=== PATIENT | female | born 1955 | race Caucasian/White ===

== ENCOUNTER → 2016-10-05 | Outpatient (CLI) | payer OTHER ==
[~2016-10-05] MED LIST: EVOXAC30 MG PO; IBUPROFEN600 MG PO; PLAQUENIL200 MG PO; PREDNISONE EYE DROPS; TOBREX 0.3% OP3.5 GM OD; URSODIOL250 MG PO
[2016-10-05 09:34] LABS: BASOPHIL% 0.3 % (0-2.5); EOSINOPHIL# 0.2 X10e3 (0-0.7); EOSINOPHIL% 3.1 % (0.0-7.0); HEMATOCRIT 43.5 % (35.0-45.0); HEMOGLOBIN 14.4 gm/dL (12.0-16.0); LYMPHOCYTE% 39.9 % (17.0-45.0); MEAN CORPUSCULAR HEMOGLOBIN 29.2 PG (28-34); MEAN CORPUSCULAR HGB CONC 33.2 g/dL (30-36); MEAN PLATELET VOLUME 8.7 FL (6.5-11.5); MONOCYTE# 0.5 X10e3 (0-1.0); MONOCYTE% 6.5 % (3.0-12.0); NEUTROPHIL# 3.7 X10e3 (1.5-7.1); NEUTROPHIL% 50.2 % (40-75); PLATELET COUNT 262 X10e3 (140-420); RED BLOOD COUNT 4.94 X10e (3.90-5.30); RED CELL DISTRIBUTION WIDTH 13.5 % (11.0-15.5); WHITE BLOOD COUNT 7.4 X10e3 (4.0-10.5)
[2016-10-05 09:45] LABS: ALBUMIN SERUM 3.8 g/dL (3.5-5.0); ALKALINE PHOSPHATASE 206 U/L (32-92); ALT (SGPT) 39 U/L (10-40); AST (SGOT) 30 U/L (10-42); BILIRUBIN,TOTAL 1.1 mg/dL (0.2-2.0); BLOOD UREA NITROGEN 22 mg/dL (9-23); BUN/CREATININE RATIO 24.44; CALCIUM SERUM 8.5 mg/dL (8.4-10.2); CARBON DIOXIDE 26 mmol/L (22-31); CHLORIDE 102 mmol/L (100-111); CHOLESTEROL 180 mg/dL (0-200); CREATININE SERUM 0.9 mg/dL (0.6-1.4); GLOM FILT RATE Estimated ABOVE60 mL/min (>60); GLUCOSE FASTING 110 mg/dL (70-110); POTASSIUM 3.6 mmol/L (3.5-5.1); PROTEIN TOTAL SERUM 7.4 g/dL (6.0-8.3); SODIUM 135 mmol/L (135-145); TRIGLYCERIDES 136 mg/dL (10-160)
[2016-10-05 10:10] LABS: DIFF IND NO
== END | disposition home or self-care (01) ==
LOC: STPL 08:49
PROVIDERS: Surgery
DX: Z48.23 Encounter for aftercare following liver transplant (principal); T45.1X1A Poisoning by antineoplastic and immunosuppressive drugs, accidental (unintentional), initial encounter; Z94.4 Liver transplant status; Z79.899 Other long term (current) drug therapy
CPT/HCPCS: 36415; 80053; 80197; 82465; 83036; 84478; 85025

== ENCOUNTER → 2016-10-12 | Outpatient (CLI) | payer OTHER ==
--- NOTE | ~2016-10-12 | CR63 ---
[facility] RADIOLOGY TEXT RESULTS PATIENT: GERARDO BANKS LOCATION: [facility] : 53 UNIT #: [id number] AGE: [address]: Frank Lopez MD SEX: F ORDER DR: [id number] [place] [id number] O MR#: [id number] Acc #: [id number] NAME: GERARDO BANKS : 1955 SEX: F STUDY DATE/TIME: 10/12/2016 10:10 UNIT: [facility] ROOM: STUDY DESCRIPTION: CR Chest 2 View Attending Physician: Frank Lopez M.D. Referring Physician: Frank Lopez M.D. Ordering Physician: Frank Lopez M.D. Primary Care Physician: No Primary Care Physician MEDICAL IMAGING REPORT This report is preliminary unless electronic signature is present. EXAM Chest x-ray 10/12/2016 INDICATION Shortness of air with cough, chills and fever for 2 weeks. History of liver transplant. FINDINGS 2 views of the chest compared with 03/21/2015. Lung volumes are low. Postoperative changes are noted in the right lung and there are scattered areas of scarring in both lungs as well. There is slight increased opacity in the right perihilar lung which could reflect an acute infiltrate. No pneumothorax. Heart size stable. There is a prominent thoracic kyphosis. IMPRESSION Persistently low lung volumes with scattered areas of scarring bilaterally and postop change in the right base. There is increased right perihilar opacity which could reflect pneumonia or atelectasis. Dictated by... Tiburcio Walker Jr., M.D. THIS IS AN ELECTRONICALLY VERIFIED REPORT Tiburcio Walker Jr., M.D. at 10/12/2016 6:58 PM CHINYERE/tyrell TD: 10/12/2016 16:02 JOB #: [id number] [facility] A [facility] RADIOLOGY TEXT RESULTS PATIENT: GERARDO BANKS LOCATION: [facility] #: [id number] : 53 UNIT #: [id number] AGE: [address]: Frank Lopez MD SEX: F ORDER DR: MEDICAL IMAGING REPORT Page 1 of 1
[2016-10-12 10:39] LABS: BASOPHIL% 0.6 % (0-2.5); EOSINOPHIL# 0.2 X10e3 (0-0.7); EOSINOPHIL% 2.5 % (0.0-7.0); HEMOGLOBIN 14.1 gm/dL (12.0-16.0); LYMPHOCYTE# 2.6 X10e3 (1.0-3.5); LYMPHOCYTE% 36.8 % (17.0-45.0); MEAN CORPUSCULAR HEMOGLOBIN 29.2 PG (28-34); MEAN CORPUSCULAR HGB CONC 32.8 g/dL (30-36); MEAN PLATELET VOLUME 8.8 FL (6.5-11.5); MONOCYTE# 0.5 X10e3 (0-1.0); MONOCYTE% 7.3 % (3.0-12.0); NEUTROPHIL# 3.7 X10e3 (1.5-7.1); NEUTROPHIL% 52.8 % (40-75); PLATELET COUNT 243 X10e3 (140-420); RED BLOOD COUNT 4.83 X10e (3.90-5.30); RED CELL DISTRIBUTION WIDTH 13.5 % (11.0-15.5)
[2016-10-12 10:44] LABS: DIFF IND NO
[2016-10-12 10:56] LABS: ALBUMIN SERUM 3.8 g/dL (3.5-5.0); ALKALINE PHOSPHATASE 217 U/L (32-92); ALT (SGPT) 45 U/L (10-40); AST (SGOT) 36 U/L (10-42); BLOOD UREA NITROGEN 19 mg/dL (9-23); BUN/CREATININE RATIO 27.14; CALCIUM SERUM 8.8 mg/dL (8.4-10.2); CARBON DIOXIDE 28 mmol/L (22-31); CHLORIDE 104 mmol/L (100-111); CREATININE SERUM 0.7 mg/dL (0.6-1.4); GLOM FILT RATE Estimated ABOVE60 mL/min (>60); GLUCOSE FASTING 102 mg/dL (70-110); POTASSIUM 3.7 mmol/L (3.5-5.1); PROTEIN TOTAL SERUM 7.2 g/dL (6.0-8.3); SODIUM 138 mmol/L (135-145)
[2016-10-12 11:34] LABS: MICRO INDICATED? YES; URINE APPEARANCE HAZY; URINE BILIRUBIN NEG (NEG); URINE BLOOD TRACE-INTACT (NEG); URINE COLOR DK YELLOW; URINE GLUCOSE NEG (NORM); URINE KETONE TRACE (NEG); URINE LEUKOCYTE ESTERASE 1+ (NEG); URINE NITRATE NEG (NEG); URINE PROTEIN TRACE (NEG); URINE SPECIFIC GRAVITY >=1.030 (1.003-1.035); URINE UROBILINOGEN 0.2 MG/DL (NORM)
[2016-10-12 11:47] LABS: URINE BACTERIA 2+ (NEG); URINE SQUAMOUS EPITHELIAL CELL MODERATE /[HPF]; URINE WBC 50-100 /[HPF] (0-5)
[2016-10-12 11:48] LABS: URINE GRANULAR CAST 0-2 /[HPF]; URINE HYALINE CAST 0-2 /[HPF]
[2016-10-15 08:25] LABS: EPSTEIN BARR VIR QT(UOFL) REF
== END | disposition home or self-care (01) ==
LOC: SRAD 09:15
PROVIDERS: Surgery
DX: Z48.23 Encounter for aftercare following liver transplant (principal); T45.1X1A Poisoning by antineoplastic and immunosuppressive drugs, accidental (unintentional), initial encounter; B25.9 Cytomegaloviral disease, unspecified; Z94.4 Liver transplant status; Z79.891 Long term (current) use of opiate analgesic; J98.4 Other disorders of lung; Z98.890 Other specified postprocedural states
CPT/HCPCS: 36415; 71020; 80053; 80197; 81003; 85025; 87040; 87086; 87497; 87799

== ENCOUNTER → 2016-11-18 | Outpatient (CLI) | payer OTHER ==
[2016-11-18 10:03] LABS: BASOPHIL% 0.5 % (0-2.5); EOSINOPHIL# 0.2 X10e3 (0-0.7); EOSINOPHIL% 2.8 % (0.0-7.0); HEMATOCRIT 40.2 % (35.0-45.0); HEMOGLOBIN 13.2 gm/dL (12.0-16.0); LYMPHOCYTE# 2.6 X10e3 (1.0-3.5); LYMPHOCYTE% 35.5 % (17.0-45.0); MEAN CELL VOLUME 87.6 FL (83-96); MEAN CORPUSCULAR HEMOGLOBIN 28.8 PG (28-34); MEAN CORPUSCULAR HGB CONC 32.9 g/dL (30-36); MEAN PLATELET VOLUME 8.4 FL (6.5-11.5); MONOCYTE# 0.5 X10e3 (0-1.0); MONOCYTE% 6.4 % (3.0-12.0); NEUTROPHIL% 54.8 % (40-75); PLATELET COUNT 250 X10e3 (140-420); RED BLOOD COUNT 4.59 X10e (3.90-5.30); WHITE BLOOD COUNT 7.3 X10e3 (4.0-10.5)
[2016-11-18 10:05] LABS: DIFF IND NO
[2016-11-18 10:14] LABS: ALBUMIN SERUM 3.8 g/dL (3.5-5.0); BILIRUBIN,TOTAL 0.6 mg/dL (0.2-2.0); BUN/CREATININE RATIO 33.33; CALCIUM SERUM 8.6 mg/dL (8.4-10.2); CREATININE SERUM 0.9 mg/dL (0.6-1.4); GLOM FILT RATE Estimated 68.6 mL/min (>60); POTASSIUM 3.6 mmol/L (3.5-5.1); PROTEIN TOTAL SERUM 7.2 g/dL (6.0-8.3)
== END | disposition home or self-care (01) ==
LOC: STPL 09:32
PROVIDERS: Surgery
DX: Z48.23 Encounter for aftercare following liver transplant (principal); Z13.1 Encounter for screening for diabetes mellitus; Z94.4 Liver transplant status; Z79.891 Long term (current) use of opiate analgesic
CPT/HCPCS: 36415; 80053; 80197; 82465; 84478; 85025; 87086

== ENCOUNTER → 2017-01-11 | Outpatient (CLI) | payer OTHER ==
[2017-01-11 09:35] LABS: BASOPHIL# 0.1 X10e3 (0-0.3); BASOPHIL% 0.8 % (0-2.5); EOSINOPHIL# 0.2 X10e3 (0-0.7); EOSINOPHIL% 2.7 % (0.0-7.0); HEMATOCRIT 40.3 % (35.0-45.0); HEMOGLOBIN 13.3 gm/dL (12.0-16.0); LYMPHOCYTE# 2.6 X10e3 (1.0-3.5); LYMPHOCYTE% 36.7 % (17.0-45.0); MEAN CELL VOLUME 88.9 FL (83-96); MEAN CORPUSCULAR HEMOGLOBIN 29.4 PG (28-34); MEAN CORPUSCULAR HGB CONC 33.1 g/dL (30-36); MONOCYTE# 0.4 X10e3 (0-1.0); MONOCYTE% 6.3 % (3.0-12.0); NEUTROPHIL# 3.7 X10e3 (1.5-7.1); NEUTROPHIL% 53.5 % (40-75); PLATELET COUNT 242 X10e3 (140-420); RED BLOOD COUNT 4.53 X10e (3.90-5.30)
[2017-01-11 09:58] LABS: DIFF IND NO
[2017-01-11 10:11] LABS: ALBUMIN SERUM 3.7 g/dL (3.5-5.0); BUN/CREATININE RATIO 31.25; CALCIUM SERUM 8.7 mg/dL (8.4-10.2); CREATININE SERUM 0.8 mg/dL (0.6-1.4); GLOM FILT RATE Estimated 79.1 mL/min (>60); POTASSIUM 3.9 mmol/L (3.5-5.1)
== END | disposition home or self-care (01) ==
LOC: STPL 09:16
PROVIDERS: Surgery
DX: Z48.23 Encounter for aftercare following liver transplant (principal); Z13.1 Encounter for screening for diabetes mellitus; T45.1X1D Poisoning by antineoplastic and immunosuppressive drugs, accidental (unintentional), subsequent encounter; Z79.891 Long term (current) use of opiate analgesic
CPT/HCPCS: 36415; 80053; 80197; 82465; 83036; 84478; 85025

== ENCOUNTER → 2017-03-08 | Outpatient (CLI) | payer OTHER ==
[2017-03-08 09:49] LABS: BASOPHIL% 0.7 % (0-2.5); EOSINOPHIL# 0.2 X10e3 (0-0.7); EOSINOPHIL% 2.8 % (0.0-7.0); HEMATOCRIT 40.5 % (35.0-45.0); HEMOGLOBIN 13.6 gm/dL (12.0-16.0); LYMPHOCYTE# 2.5 X10e3 (1.0-3.5); LYMPHOCYTE% 36.8 % (17.0-45.0); MEAN CELL VOLUME 88.1 FL (83-96); MEAN CORPUSCULAR HEMOGLOBIN 29.6 PG (28-34); MEAN CORPUSCULAR HGB CONC 33.6 g/dL (30-36); MEAN PLATELET VOLUME 8.2 FL (6.5-11.5); MONOCYTE# 0.5 X10e3 (0-1.0); MONOCYTE% 7.1 % (3.0-12.0); NEUTROPHIL# 3.6 X10e3 (1.5-7.1); NEUTROPHIL% 52.6 % (40-75); PLATELET COUNT 229 X10e3 (140-420); RED CELL DISTRIBUTION WIDTH 13.5 % (11.0-15.5); WHITE BLOOD COUNT 6.9 X10e3 (4.0-10.5)
[2017-03-08 09:57] LABS: DIFF IND NO
[2017-03-08 10:11] LABS: ALBUMIN SERUM 3.9 g/dL (3.5-5.0); BILIRUBIN,TOTAL 1.1 mg/dL (0.2-2.0); CALCIUM SERUM 8.7 mg/dL (8.4-10.2); GLOM FILT RATE Estimated 60.4 mL/min (>60); POTASSIUM 3.9 mmol/L (3.5-5.1); PROTEIN TOTAL SERUM 6.1 g/dL (6.0-8.3)
== END | disposition home or self-care (01) ==
LOC: STPL 08:47
PROVIDERS: Surgery
DX: Z48.23 Encounter for aftercare following liver transplant (principal); T45.1X1D Poisoning by antineoplastic and immunosuppressive drugs, accidental (unintentional), subsequent encounter; Z79.891 Long term (current) use of opiate analgesic
CPT/HCPCS: 36415; 80053; 80197; 82465; 84478; 85025

== ENCOUNTER → 2017-04-12 | Outpatient (CLI) | payer OTHER ==
[2017-04-12 09:43] LABS: BASOPHIL% 0.7 % (0-2.5); EOSINOPHIL# 0.2 X10e3 (0-0.7); EOSINOPHIL% 4.2 % (0.0-7.0); HEMATOCRIT 40.9 % (35.0-45.0); HEMOGLOBIN 13.8 gm/dL (12.0-16.0); LYMPHOCYTE# 2.1 X10e3 (1.0-3.5); LYMPHOCYTE% 35.1 % (17.0-45.0); MEAN CELL VOLUME 87.9 FL (83-96); MEAN CORPUSCULAR HEMOGLOBIN 29.7 PG (28-34); MEAN CORPUSCULAR HGB CONC 33.8 g/dL (30-36); MEAN PLATELET VOLUME 8.2 FL (6.5-11.5); MONOCYTE# 0.4 X10e3 (0-1.0); MONOCYTE% 6.6 % (3.0-12.0); NEUTROPHIL# 3.2 X10e3 (1.5-7.1); NEUTROPHIL% 53.4 % (40-75); PLATELET COUNT 223 X10e3 (140-420); RED BLOOD COUNT 4.66 X10e (3.90-5.30); RED CELL DISTRIBUTION WIDTH 13.7 % (11.0-15.5)
[2017-04-12 09:48] LABS: DIFF IND NO
[2017-04-12 10:26] LABS: ALBUMIN SERUM 3.7 g/dL (3.5-5.0); BILIRUBIN,TOTAL 1.2 mg/dL (0.2-2.0); CALCIUM SERUM 8.6 mg/dL (8.4-10.2); GLOM FILT RATE Estimated 60.4 mL/min (>60); POTASSIUM 3.8 mmol/L (3.5-5.1); PROTEIN TOTAL SERUM 6.9 g/dL (6.0-8.3)
== END | disposition home or self-care (01) ==
LOC: STPL 09:17
PROVIDERS: Surgery
DX: Z48.23 Encounter for aftercare following liver transplant (principal); Z13.1 Encounter for screening for diabetes mellitus; T45.1X1D Poisoning by antineoplastic and immunosuppressive drugs, accidental (unintentional), subsequent encounter; Z79.891 Long term (current) use of opiate analgesic
CPT/HCPCS: 36415; 80053; 80197; 82465; 83036; 84478; 85025